=== PATIENT | male | born 1995 ===

== ENCOUNTER 2019-11-15 16:05 | Emergency (ER) | payer OTHER ==
--- NOTE | 2019-11-15 16:44 | EDM.PDOC ---
Scribed by Brenda Colbert 11/15/19 [id number] for Louis Tobias MD ED HPI GENERAL MEDICAL PROBLEM - General Chief Complaint: Abdominal Pain Stated Complaint: LOWER RIGHT STOMACH IN THE FRONT PAIN Time Seen by Provider: 11/15/19 16:23 Source of Information: Reports: Patient, RN, RN Notes Reviewed History Limitations: Reports: No Limitations - History of Present Illness INITIAL COMMENTS - FREE TEXT/NARRATIVE: Patient presents to ER with right upper and lower quadrant pain. He states he has had right sided pain for 3 days after twisting and lifting, and the pain has been worse since around 10:00 this morning that is non-radiating. Notices it when he moves or pushes to get up or sit up. He has not taken anything for pain. Two days ago he had more epigastric discomfort but went away on its own. Has been a little constipated also. Denies blood in stools. Voiding without problems. No fevers or chills. Denies cough. Onset: Gradual Duration: Day(s): (3), Constant Location: Reports: Abdomen Quality: Reports: Ache Severity: Moderate Improves with: Reports: Immobilization, Rest Worsens with: Reports: Movement Context: Reports: Lifting Associated Symptoms: Reports: No Other Symptoms Right Lower Abdomen Pain Score (Numeric/FACES): 4 - Related Data Allergies Allergy/AdvReac Type Severity Reaction Status Date / Time No Known Allergies Allergy Verified 11/15/19 16:13 Home Meds: Home Meds . [No Known Home Meds] 11/15/19 [History] Past Medical History - Past Health History Medical/Surgical History: Denies Medical/Surgical History Social & Family History - Family History Family Medical History: Noncontributory - Tobacco Use Smoking Status *Q: Never Smoker - Living Situation & Occupation Occupation: Employed ED ROS GENERAL - Review of Systems Review Of Systems: Comprehensive ROS is negative, except as noted in HPI. ED EXAM, GI/ABD - Physical Exam Exam: See Below Exam Limited By: No Limitations General Appearance: Alert, WD/WN, No Apparent Distress Eyes: Bilateral: Normal Appearance Nose: Normal Inspection, Normal Mucosa, No Blood Throat/Mouth: Normal Inspection, Normal Lips, Normal Voice, No Airway Compromise Head: Atraumatic, Normocephalic Neck: Normal Inspection, Non-Tender, Full Range of Motion Respiratory/Chest: No Respiratory Distress, Lungs Clear, Normal Breath Sounds, No Accessory Muscle Use, Chest Non-Tender Cardiovascular: Normal Peripheral Pulses, Regular Rate, Rhythm, No Edema, No Murmur GI/Abdominal Exam: Normal Bowel Sounds, Soft, Non-Tender, No Distention, Other (The pain is consistently reproducible by twisting right to left against resistance, and flexing to sit up.). No: Guarding, Rigid, Rebound (Male) Exam: Deferred Rectal (Males) Exam: Deferred Back Exam: Normal Inspection, Full Range of Motion. No: CVA Tenderness (L), CVA Tenderness (R) Extremities: Normal Inspection, Normal Range of Motion, Non-Tender, Normal Capillary Refill, No Pedal Edema Neurological: Alert, Oriented, CN II-XII Intact, Normal Cognition, Normal Gait, No Motor/Sensory Deficits Psychiatric: Normal Affect, Normal Mood Skin Exam: Warm, Dry, Intact, Normal Color, No Rash Course - Vital Signs Last Recorded V/S: Last Vital Signs Temp 98.2 F 11/15/19 16:13 Pulse 92 11/15/19 16:13 Resp 18 11/15/19 16:13 BP 124/86 11/15/19 16:13 Pulse Ox 99 11/15/19 16:13 - Orders/Labs/Meds Labs: Laboratory Tests 11/15/19 11/15/19 11/15/19 Range/Units 16:18 16:18 16:35 WBC 8.6 (5.0-10.0) 10^3/uL RBC 4.89 (4.6-6.2) 10^6/uL Hgb 14.8 (14.0-18.0) g/dL Hct 42.1 (40.0-54.0) % MCV 86.1 (80-100) fL MCH 30.3 (27.0-34.0) pg MCHC 35.2 H (33.0-35.0) g/dL Plt Count 197 (150-450) 10^3/uL Neut % (Auto) 74.7 (42.2-75.2) % Lymph % (Auto) 17.4 L (20.5-50.1) % [place] % (Auto) 7.5 (2-8) % Eos % (Auto) 0.3 L (1.0-3.0) % Baso % (Auto) 0.1 (0.0-1.0) % Urine Color Yellow (YELLOW) Urine Appearance Clear (CLEAR) Urine pH 6.5 (5.0-9.0) Ur Specific [place] 1.020 (1.005-1.030) Urine Protein Negative (NEGATIVE) Urine Glucose (UA) Negative (NEGATIVE) Urine Ketones Negative (NEGATIVE) Urine Occult Blood Negative (NEGATIVE) Urine Nitrite Negative (NEGATIVE) Urine Bilirubin Negative (NEGATIVE) Urine Urobilinogen 0.2 (0.2-1.0) mg/dL Ur Leukocyte Esterase Negative (NEGATIVE) Urine Opiates Screen Negative (NEGATIVE) Ur Oxycodone Screen Negative (NEGATIVE) Urine Methadone Screen Negative (NEGATIVE) Ur Barbiturates Screen Negative (NEGATIVE) U Tricyclic Antidepress Negative (NEGATIVE) Ur Phencyclidine Scrn Negative (NEGATIVE) Ur Amphetamine Screen Negative (NEGATIVE) U Methamphetamines Scrn Negative (NEGATIVE) Urine MDMA Screen Negative (NEGATIVE) U Benzodiazepines Scrn Negative (NEGATIVE) Urine Cocaine Screen Negative (NEGATIVE) U Marijuana (THC) Screen Negative (NEGATIVE) Departure - Departure Time of Disposition: 16:42 Disposition: Home, Self-Care 01 Condition: Good Clinical Impression: Abdominal muscle strain Qualifiers: Encounter type: initial encounter Qualified Code(s): S39.011A - Strain of muscle, fascia and tendon of abdomen, initial encounter - Discharge Information *PRESCRIPTION DRUG MONITORING PROGRAM REVIEWED*: Not Applicable *COPY OF PRESCRIPTION DRUG MONITORING REPORT IN PATIENT MICHELE: Not Applicable Instructions: Muscle Strain, [id number] Forms: ED Department Discharge Additional Instructions: Rx: Naprosyn 500mg *Take with food/meals. Rx: Cyclobenzaprine 10mg *Do not drive or work for 8 hours after taking this medication. Light duty at work for 3 days. Follow up in clinic if not improving as expected. Sepsis Event Note (ED) - Evaluation Sepsis Screening Result: No Definite Risk - Focused Exam Vital Signs: Vital Signs Temp Pulse Resp BP Pulse Ox 11/15/19 16:13 98.2 F 92 18 124/86 99 I have read and agree with the documentation that has been completed regarding this visit. By signing this record, I attest that the documentation was completed in my physical presence and is an accurate record of the encounter.
== END 2019-11-15 16:55 | disposition home or self-care (01) ==
LOC: DL.ED 16:05
DX: S39.011A Strain of muscle, fascia and tendon of abdomen, initial encounter (principal); X50.0XXA Overexertion from strenuous movement or load, initial encounter
CPT/HCPCS: 36415; 80305-QW; 81003; 85025; 99284